=== PATIENT | male | born 1965 | race Hispanic/Latino ===

== ENCOUNTER 2020-04-28 12:37 | Inpatient (IN) | payer SELFPAY ==
[~2020-04-28] VITALS: Ht 175.3 cm; Wt 75.0 kg
[2020-04-28] VITALS (7 sets, daily range): BP systolic 118–129; BP diastolic 58–76
[~2020-04-28 12:37] MED LIST: CLONIDINE0.1 MG PO
--- NOTE | 2020-04-28 13:00 | NUR ---
AMB TO ROOM 8 WITH STEADY GAIT.
--- NOTE | 2020-04-28 13:53 | NUR ---
PLACED ON INFECTION PREVENTION PRACTITIONER, READS SINUS TACH, IVS ESTABLISHED, BLOOD OBTAINED, NASAL SWAB OBTAINED , SPECIMENS SENT TO LAB FOR ANALYSIS. PT TOLERATED WELL.
[2020-04-28 14:00] LABS: HEMATOCRIT 44.6 % (39.0-50.0); HEMOGLOBIN 15.5 g/dl (14.0-18.0); IMMATURE GRANULOCYTES 0.5 % (0.0-5.0); MEAN CELL VOLUME 91.6 fL CALC (80.0-100.0); MEAN CORPUSCULAR HGB 31.8 pG CALC (26.0-32.0); MEAN CORPUSCULAR HGB CONC 34.8 g/dL CAL (32.0-36.0); NEUT# 16.14 thou/uL (1.82-7.42); RED BLOOD COUNT 4.87 mill/uL (4.70-6.10); RED CELL DISTRI WIDTH 11.8 % (11.5-15.5)
[2020-04-28 14:11] LABS: ALBUMIN 3.7 g/dL (3.2-5.0); ALKALINE PHOSPHATASE 141 u/l (38-126); ANION GAP 15 (6-22 (CALC)); BILIRUBIN, TOTAL 0.7 mg/dL (0.0-1.4); BUN 9 mg/dL (9-20); BUN/CREATININE RATIO 16 (12-20 (CALC)); CARBON DIOXIDE 26 mmol/l (22-30); CHLORIDE 94 mmol/l (95-108); CREATININE 0.5 mg/dL (0.7-1.3); GFR > 60 ML/MIN (>=60 (CALC)); GFR FOR AFR.AMER. > 60 ML/MIN (>=60 (CALC)); SGOT/AST 22 u/l (17-59); TOTAL PROTEIN 7.2 g/dL (6.3-8.2)
[2020-04-28 14:14] LABS: SODIUM 131 mmol/l (137-146)
--- NOTE | 2020-04-28 14:19 | NUR ---
SBAR PRINTED TO FLOOR
--- NOTE | 2020-04-28 14:45 | NUR ---
PT ASSESSED. AO X 3. SKIN PINK WARM AND DRY. PT SPEAK SOME [place]. RT GROIN AREA RED WARM SWOLLEN AND PAINFUL FOR THE PAST WEEK. PAIN 4/10 PER PATIENT. IV FLUIDS AND ANTIBIOTICS INFUSING
--- NOTE | 2020-04-28 15:32 | NUR ---
OR PRESENT TO TAKE PATIENT. VANCOMYCIN GIVEN TO OR TO BE ADMISTERED. PT BELONGINGS TRANSPORTED WITH PATIENT
--- NOTE | 2020-04-28 17:19 | NUR ---
PT ARRIVED TO MS2 VIA STRETCHER ACCOMPANIED BY OR NURSE, PT POST OP, ORIENTED PT TO ROOM AND CALL LIGHT, PT SLID TO BED FROM STRETCHER TOLERATED WELL, VOICES NO PAIN AT THIS TIME. PT PROVIDED DINNER TRAY AND WATER. DRESSING TO R INNER THIGH CDI, SCD'S IN PLACE, DISCUSSED POST OP CARE, ADMISSION ASSESSMENT COMPLETED, CALL LIGHT IN REACH,CONTINUE TO MONITOR.
--- NOTE | 2020-04-29 02:49 | NUR ---
PT IN BED WITH EYES CLOSED. NO RESPIRATORY DISTRESS NOTED. RESPIRATIONS ARE EVEN AND NON LABORED. PT IS EASILY AROUSED. DRESSING CHANGE COMPLETED TO RIGTH GROIN AREA AND MOIST TO DRY DRESSING APPLIED. PT TOLERATED DRESSING CHANGE WELL. HAS LACTATED RINGERS RUNNING AT 100ML/HR AND TOLERATING WELL. IV SITES ARE INTACT AND NO S/S OF INFECTION/INFILTRATION NOTED. TOLERATING FLUIDS WELL. WILL CONTINUE TO OBSERVE. BED IN LOWEEST POSITION AND CALL LIGHT IS WITHIN REACH. WILL CONTINUE TO OBSERVE
[2020-04-29 04:20] VITALS: BP 124/69
[2020-04-29 08:05] VITALS: BP 138/78
--- NOTE | 2020-04-29 08:05 | NUR ---
PT RESTING IN BED, NO SIGNS OF DISTRESS NOTED, RESP EVEN AND UNLABORED. PT ALERT AND ORIENTED X3, DRESSING TO SCROTUM CDI, SCDS IN PLACE. ASSESSMENT COMPLETED, CALL LIGHT IN REACH,CONTINUE TO MONITOR.
--- NOTE | 2020-04-29 10:57 | NUR ---
ARRIVED TO DISCUSSED POC WITH PT AND DRESSING CHANGE. PER MD REQUESTS PT BE PRE-MEDICATED FOR DRESSING CHANGE, PT IN ROOM NO SIGNS OF DISTRESS NOTED, RESP EVEN AND UNLABORED, DISCUSSED PLANS FOR DRESSING CHANGE WITH PT, VERBALIZE UNDERSTANDING. PT MEDICATED. CALL LIGHT IN REACH,CONTINUE TO MONITOR.
[2020-04-29 11:00] VITALS: BP 138/76
--- NOTE | 2020-04-29 15:35 | NUR ---
PT GIVEN DIETARY INFORMATION IN UKRAIN[place] REGARDING DIABETES. VOICES NO NEEDS OR COMPLAINTS AT THIS TIME, CALL LIGHT IN REACH,CONTINUE TO MONITOR.
[2020-04-29 16:03] VITALS: BP 121/71
[2020-04-29 20:56] VITALS: BP 126/73
[2020-04-30] VITALS (11 sets, daily range): BP systolic 121–172; BP diastolic 72–101
[2020-04-30 05:20] LABS: IMMATURE GRANULOCYTES 0.4 % (0.0-5.0); MEAN CELL VOLUME 95.4 fL CALC (80.0-100.0); MEAN CORPUSCULAR HGB 31.5 pG CALC (26.0-32.0); NEUT# 8.4 thou/uL (1.82-7.42); RED BLOOD COUNT 3.94 mill/uL (4.70-6.10); RED CELL DISTRI WIDTH 12.2 % (11.5-15.5)
[2020-04-30 05:35] LABS: HEMATOCRIT 37.6 % (39.0-50.0); HEMOGLOBIN 12.4 g/dl (14.0-18.0)
--- NOTE | 2020-04-30 06:58 | NUR ---
PT IS ALERT AND ORIENTED AND ABLE TO VERBALIZE NEEDS.SKIN WARM TO TOUCH. DRESSING CHANGE TO RIGTH GROIN HAS BEEN CHANGED PRESCRIBED BY MD AND PT TOLERATED. PT CONTINUES ON ZOSYN ABT THERAPY. LACTATED RINGERS RUNNING AT 100. PT NPO THIS MORNING FOR I AND D WITH POSSIBLE DISCHARGE NOTED. PT IS CONTINENT OF B/B. EASILY AROUSED. NO COUGH NOTED. CALL LIGHT WITHIN REACH. WILL CONTINUE TO OBSERVE
--- NOTE | 2020-04-30 08:00 | NUR ---
PT IS NPO BLOOD SUGAR WAS HIGH CONITNUE O OBSERVE AND MONITOR
--- NOTE | 2020-04-30 08:10 | NUR ---
ASSESSMENT IS COMPLETED: IV SITE IS FREE FROM REDNESS OR EDEMA. HR IS REG,PULSES ARE STRONG X4, ABD IS SOFT WITH ACTIVE BS., BREATH SOUNDS ARE CLEAR,BILATERALLY. DRESSING ON R GROIN AREA IS CDI. IN PLACE BY MESH PANTIES. TELE MONITOR IN PLACE. NPO AT THIS TIME.
--- NOTE | 2020-04-30 10:54 | NUR ---
INQUIRED WITH OR WHEN COMING TO GET PT. AROUND 1130ISH.
--- NOTE | 2020-04-30 11:34 | NUR ---
OR CAME TO GET PT PT TRANSPORTED VIA WC TO THE STRETCHER. IV SITE CHANGED TO HEPLOCK NO J LOOP. FLUSHED WELL. PT TOLERATED WELL. IV SITE IN RW IS CDI. CONTINUE TO OSBERVE AND MONITOR.
--- NOTE | 2020-04-30 12:00 | NUR ---
PT IS IN OR AT THIS TIME.
--- NOTE | 2020-04-30 14:00 | NUR ---
called wound vac at spoke to silvia gave number of wound vac of pt which is [id number]. was given conformation number of [id number].
--- NOTE | 2020-04-30 14:20 | NUR ---
PT RETURNED FROM OR VIA STRETCHER ABLE TO TRANSFER BACK TO BED.
--- NOTE | 2020-04-30 16:00 | NUR ---
PT HAS BEEN AMBUALTING IN THE ROOM. NO DISTRESS NOTED. IV SITE IS FREE FROM REDNESS OR EDEMA.
--- NOTE | 2020-04-30 19:00 | NUR ---
RECEIVED REPORT FROM NURSE LOPES PATIENT RESTING IN BED WATCHING TV, NO DISCOMFORTS NOTED AT THIS TIME CALL LIGHT AT REACH.
--- NOTE | 2020-04-30 21:00 | NUR ---
PATIENT ALERT ORINETED ABLE TO MAKE NEEDS KNOWN, WITH WOUNDVAC @ 125 ON RT GROIN, C/O PAIN PS 05/11 WILL MEDICATE, BREATHING EVEN UNLABORED, REMAINS ON TELE SB 54, LBM 04/30, CALL LIGHT AT REACH.
[2020-05-01] VITALS (9 sets, daily range): BP systolic 146–211; BP diastolic 79–97
--- NOTE | 2020-05-01 | NUR ---
PATIENT APPEARS TO BE SLEEPING WITH EYES CLOSED, EVEN AND UNLABORED RESPIRATIONS NO DISCOMFORTS NOTED AT THIS TIME, CALL LIGHT AT REACH.
--- NOTE | 2020-05-01 04:00 | NUR ---
PATIENT RESTING IN BED EYES CLOSED, BREATHING EVEN AND UNLABORED CALL LIGHT AT REACH.
--- NOTE | 2020-05-01 13:52 | NUR ---
S: FRANCESCASAVITA is a 55 M who presents with abscess of right groin. He has no remarkable past medical history. All medications in patient's chart were reviewed. 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 P: Vancomycin ordered for pharmacy to dose. Start Vancomycin 1,250 mg IV Q12 H. Vancomycin trough is drawn before the 4th dose on 05/03 @ 0130. Vancomycin goal trough is between 10 to 15 mcg/mL. Pharmacy will follow and or advise on antibiotics use as needed.
--- NOTE | 2020-05-01 18:53 | NUR ---
PT SITTING UP IN BED WITH EYES OPEN AND ABLE TO VERBALIZE NEEDS. SKIN WARM TO TOUCH. STARTED ON VANCOMYCIN ABT THERAPY AND TOLERATED WELL. BP ELEVATED AND MD MADE AWARE AND NEW ORDER FOR CONSULT WITH HOSPITALIST. HOSPITALIST NOTIFIED AND NEW ORDERS FOR AMLODIPINE AND APRESOMIN IV PRN. SSC GIVEN PRESCIBED BY MD. WOUND VAC IN PLACE AND FUNCTIONING WELL. WILL CONTINUE TO OBSERVE
--- NOTE | 2020-05-01 19:00 | NUR ---
RECEIVED REPORT FROM NURSE PANDA PATIENT RESTING IN BED WATCHING TV CALL LIGHT AT REACH.
--- NOTE | 2020-05-01 21:00 | NUR ---
PATIENT ALERT ORIENTED, ABLE TO MAKE NEEDS KNONW, WITH ONGOING IV LR @ 100CC/HR INFUSING WELL ON RAC AND SALINE LOCK ON RT WRIST PATENT AND FLUSHES WELL REMAINS ON TELE SR 99, HOOKED TO WOUND VAC @ 125, C/O PAIN PS 3/10, WILL REPOSITIONED, BREATHING EVEN UNLABORED, CALL LIGHT AT REACH.
--- NOTE | 2020-05-01 22:20 | NUR ---
WOUNDVAC SHOWING LEAK, DRESSING REINFORCED.
--- NOTE | 2020-05-02 | NUR ---
PATIENT APPEARS TO BE SLEEPING WITH EYES CLOSED, BREATHING EVEN AND UNLABORED CALL LIGHT AT [facility].
--- NOTE | 2020-05-02 04:00 | NUR ---
PATIENT RESTING IN BED WITH EYES CLOSED, REMAINS ON TELE SR 79, WOUND VAC SEAL GOOD, NOT IN DISTRESS CALL LIGHT AT REACH.
[2020-05-02 04:08] VITALS: BP 168/90
[2020-05-02 06:32] VITALS: BP 137/86
--- NOTE | 2020-05-02 08:53 | NUR ---
RECEIVED REPORT THIS AM ON THIS PT AND PT IN BED WITH EYES OPEN. ABLE TO VERBALIZE NEEDS. MEAL AND FLUID INATKE ADEQUATE. CONTINUES ON LR AR 100ML/HR AND TOLERATING WELL. NO ADVERSE SIDE EFFECTS NOTED TO VANCOMYCIN ABT THERAPY. PT IS AMBULATORY AND GAIT.BALANCE STEAY. WOUND VAC IN PLACE AND FUNCTIONING WITH NO COMPLICATIONS AND SCHEDULED TO BE CHANGED TODAY. CONTINENT OF B/B. WILL CONTINUE TO OBSERVE. CALL LIGHT IS WITHIN REACH.
[2020-05-02 08:56] LABS: IMMATURE GRANULOCYTES 0.5 % (0.0-5.0); MEAN CELL VOLUME 95.1 fL CALC (80.0-100.0); MEAN CORPUSCULAR HGB 31.4 pG CALC (26.0-32.0); NEUT# 8.74 thou/uL (1.82-7.42); RED BLOOD COUNT 4.93 mill/uL (4.70-6.10); RED CELL DISTRI WIDTH 11.8 % (11.5-15.5)
[2020-05-02 09:09] LABS: HEMATOCRIT 46.9 % (39.0-50.0); HEMOGLOBIN 15.5 g/dl (14.0-18.0)
[2020-05-02 11:01] VITALS: BP 172/83
[2020-05-02 16:15] VITALS: BP 135/51
[2020-05-02 19:00] VITALS: BP 134/75
--- NOTE | 2020-05-02 19:51 | NUR ---
WOUND VAC DRESSING CHANGED AND PT TOLERATED WELL. AREAS ARE CLEAN AND NO ODOR NOTED. SORROUNDING SKIN IS INTACT AND TENDER TO TOUCH. RED GRANULATION TISSUE NOTED. 10% YELLOW TISSUE NOTED IN DISTAL SURGICAL WOUND.
--- NOTE | 2020-05-02 20:55 | NUR ---
PT RESTING IN BED, ALERT AND ORIENTED. RESPIRATIONS EVEN AND UNLABORED ON RA. LUNGS SOUND CLEAR. PEDAL PULSES WEAK. PT REPORTS MILD PAIN IN HIS GROIN AREA, PT TO BE MEDICATED PER EMAR ORDERS. WOUND VAC IN PLACE. CALL ARMANDO WITHIN REACH. WILL CONTINUE TO MONITR.
[2020-05-02 23:33] VITALS: BP 128/71
--- NOTE | 2020-05-03 00:15 | NUR ---
PT RESTING IN BED. NO S/S OF DISTRESS AT THIS TIME. SAFETY PRECAUTIONS IN PLACE. WILL CONTNUE TO MONITOR.
[2020-05-03 04:11] VITALS: BP 144/85
--- NOTE | 2020-05-03 04:26 | NUR ---
PT RESTING IN BED. RESPIRATIONS EVEN AND UNLABORED ON RA. NO S/S OF DISTRESS AT THIS TIME. SAFETY PRECAUTIONS IN PLACE. WILL CONTINUE TO MONITOR.
[2020-05-03 06:01] LABS: CREATININE 0.5 mg/dL (0.7-1.3)
[2020-05-03 07:46] VITALS: BP 149/79
--- NOTE | 2020-05-03 07:46 | NUR ---
PT LAYING IN BED. A&O X3. NO DISTRESS NOTED. PT DENIES ANY PAIN AT THIS TIME. WOND VAC IN PLACE WITH DRESSING CDI. WOUND VAC ASSESSED DUE TO MACHINE PROMPTING TO DOUBLE CHECK TUBING. SEROSANGUINEOUS FLUID NOTED IN COLLECTION CHAMBER. ASSESSMENT COMPLETED. DISCUSSED POC. CALL LIGHT IN REACH. CONTINUE TO MONITOR.
--- NOTE | 2020-05-03 09:31 | NUR ---
S: FRANCESCASAVITA ARMIJO is a 55 M who presents with abscess of right groin. He has no past medical history. All medications in patient's chart were reviewed. O: VS: BP 149/79 mmHg, P 66 bmp, RR 20, T 97.4 F W 75 kg, HT 175 cm, Scr= 0.5 mg/dL ,CrCl= 149.3 ml/min Vancomycin trough on 05/03 is 6. A: Blood culture 04/28/20 is pending. Wound culture on 04/28/20 shows methicillin resistant staph au which is sensitive to vancomycin. Vancomycin trough level is 6. P: Vancomycin ordered for pharmacy to dose. Change Vancomycin dose to 1250 mg IV Q8H. Order Vancomycin trough to be drawn before the 4th dose on 05/04/20 at 1330. Vancomycin goal trough is between 10-15 mcg/ml. Pharmacy will follow and or advise on antibiotics use as needed.
--- NOTE | 2020-05-03 10:30 | NUR ---
DR LOERA AT BEDSIDE, PER EVARISTO APPLY TEGADERM TO PREVENT WOUND VAC AIR TO LEAK. DRESSING TO BE CHANGED AND WOUND TO BE EVALUATED BY EVARISTO IN THE MORNING.
[2020-05-03 11:16] VITALS: BP 142/81
--- NOTE | 2020-05-03 14:32 | NUR ---
PT DENIES ANY PAIN AT THIS TIME. CALL LIGHT IN REACH. CONTINUE TO MONITOR
[2020-05-03 15:30] VITALS: BP 131/74
--- NOTE | 2020-05-03 17:59 | NUR ---
PT LAYING IN BED C/O OF PAIN. PAIN MEDICATION GIVEN. WILL REASSESS.
[2020-05-03 19:00] VITALS: BP 125/70
--- NOTE | 2020-05-03 21:45 | NUR ---
PT RETURNING TO BED FROM THE RESTROOM, GATE STEADY. RESPIRATIONS EVEN AND UNLABORED ON RA, LUNGS SOUND CLEAR. PEDAL PULSES STRONG. WOUND VAC IN PLACE. PT DENIES ANY PAIN OR DISCOMFORT AT THIS TIME. SAFETY PRECAUTIONSIN PLACE. WILL CONTINUE TO MONITOR.
[2020-05-03 23:46] VITALS: BP 120/71
--- NOTE | 2020-05-04 00:15 | NUR ---
PT RESTING IN BED, RESPIRATIONS EVEN AND UNLABORE NO S/S OF DISTRESS AT THIS TIME. SAFETY PRECAUTIONSIN PLACE. WILL CONTINUE TO MONTIOR.
--- NOTE | 2020-05-04 01:58 | NUR ---
PT RESTING IN BED. PT ALERT AND ORIENTED. WOUND VAC ERROR, BLOCKAGE NOTED, PT PRE MEDICATED FOR PAIN, WOUND VAC DRESSING REMOVED. PREVIOUS DRESSING NOTED SUCTION TO SKIN AND NOT THE SPONGE NO APPARENT SKIN BREAK DOWN. LARGE AMOUNT OF SEROUSAGUINOUS DRAINAGE NOTED. SURROUNDING SKIN CLEANSED WITH NS, DRIED AND SKIN PREP APPLIED. NEW WOUND DRESSING APPLIED. SUCTION TO 125 MMHG NO LEAKS OR BLOCKAGES DETECTED. PT TOLERATED WELL. SAFETY PRECAUTIONSIN PLACE. WILL CONTINUE TO MONITOR.
--- NOTE | 2020-05-04 03:38 | NUR ---
PT RESTING IN BED NO S/S OF DISTRESS AT THIS TIME. SAFETY PRECAUTIONS IN PLACE.WILL CONTINUE TO MONITOR.
[2020-05-04 05:00] VITALS: BP 112/61
[2020-05-04 07:45] VITALS: BP 131/86
--- NOTE | 2020-05-04 07:45 | NUR ---
ASSESSMENT IS COMPELTED: IV SITE IS FREE FROM REDNESS OR EDEMA. HR IS REG,PULSES ARE STRONG X4, ABD IS SOFT WITH ACTIVE BS. BREATH SOUNDS ARE CLEAR BILATERALLY. WOUND VAC IN PLACE ON R GROIN. TELE MONITOR IN PLACE. CONTINUE TO OBSERVE AND MONITOR.
[2020-05-04 11:13] VITALS: BP 147/74
--- NOTE | 2020-05-04 12:40 | NUR ---
PT HAS BEEN RELAXING IN BED, NO DISTRESS NOTED. CONTINUE TO OSBERVE AND MONITOR. IV SITE IS FREE FROM REDNESS OR EDEMA.
--- NOTE | 2020-05-04 13:30 | NUR ---
DR LOERA IN TO VISIT WITH PT. TOOK WOUND VAC OFF AND REPLACED WITH 4X4 PACKING LIGHTLY AND SECURED WITH ABD PAD AND MESH PANTIES. CONTINUE TO OSBERVE AND MONITOR.
[2020-05-04 15:00] VITALS: BP 106/68
--- NOTE | 2020-05-04 15:54 | NUR ---
pt is receiving vancomycin 1250 q8h for abscess of right groin. goal trough = 10-15 mcg/ml. trough today = 12 mcg/ml. continue at current dose, re-check trough 05/05 @1330. pharmacy will continue to follow
--- NOTE | 2020-05-04 16:24 | NUR ---
PT HAS BEEN AMBULATING IN THE ROOM AND SEE WITH NO DISTRESS NOTED. IV SITE IS FREE FROM REDNESS OR EDEMA.
[2020-05-04 19:00] VITALS: BP 127/72
--- NOTE | 2020-05-04 21:19 | NUR ---
PT RESTING IN BED, RESPIRATIONS EVEN AND UNLABORED ON RA. LUNGS SOUND CLEAR. PEDAL PULSES STRONG. DRESSING TO R GROIN SOILED, OLD DRESSING REMOVED AND NEW DRESSING APPLIED. PT TOLERATED WELL. WILL CONTINUE TO MONTIOR.
[2020-05-04 23:30] VITALS: BP 151/76
[2020-05-05 04:20] VITALS: BP 122/68
--- NOTE | 2020-05-05 04:34 | NUR ---
PT RESTING IN BED. RESPIRATIONS EVEN AND UNLABORED ON RA. SAFETY PRECAUTIONS IN PLACE. WILL CONTINUE TO MONITOR.
--- NOTE | 2020-05-05 04:34 | NUR ---
PT RESTING IN BED. RESPIRATIONS EVEN AND UNLABORED ON RA. NO S/S OF DISTRESS AT THIS TIME. SAFETY PRECAUTIONS IN PLACE. WILL CONTINUE TO MONITOR.
[2020-05-05 07:42] VITALS: BP 139/83
--- NOTE | 2020-05-05 07:42 | NUR ---
ASSESSMENT IS COMPLETED: IV SITE IS FREE FROM REDNESS OR EDEMA. HR IS REG,PULSES ARE STRONG X4, ABD IS SOFT WITH ACTIVE BS. BREATH SOUNDS ARE CLEAR, BILATERALLY. DRESSING ON R GROIN AREA IS TENDER TO THE TOUCH, HAS DRAINAGE NOTED. CONTINUE TO OSBERVE AND MONITOR.
--- NOTE | 2020-05-05 09:49 | NUR ---
DR LOERA IN TO VISIT WITH PT WILL TEACH PT HOW TO CHANGE DRESSING POSSIBLY GOING HOME TOMORROW.
[2020-05-05 11:26] VITALS: BP 119/53
--- NOTE | 2020-05-05 12:45 | NUR ---
PT IS RELAXING IN BED WITH NO DISTRESS NOTED. IV SITE IS FREE FROM REDNESS OR EDEMA.
--- NOTE | 2020-05-05 13:32 | NUR ---
PT IS RECEIVING VANCOMYCIN 1250MG IV Q8H FOR ABSCESS OF RIGHT GROIN. GOAL TROUGH = 10-15 MCG/ML. PT TROUGH TODAY = 13 MCG/ML. CONTINUE, RECHECK TROUGH 05/07 @ 1330. PHARMACY WILL CONTINUE TO FOLLOW.
--- NOTE | 2020-05-05 13:50 | NUR ---
REMOVED DRESSING ON R GROIN AREA. PT TOLERATED WELL. OBSERVED THE DRESSING CHANGE "STATING I WILL TRY" REPLACED WITH 4X4 AND SECURED WITH ABD PAD/ PT TOLERATED WELL USING CLEAN TECHNIQUE
[2020-05-05 15:00] VITALS: BP 115/72
--- NOTE | 2020-05-05 16:08 | NUR ---
REPORT RECEIVED FROM MARIANNE DAVIS, PT RESTING IN BED, VOICES NO NEEDS OR COMPLAINTS AT THIS TIME. CALL LIGHT IN REACH,CONTINUE TO MONITOR.
[2020-05-05 18:39] VITALS: BP 125/71
--- NOTE | 2020-05-05 19:27 | NUR ---
PT AMBULATING THE SEE WITH A STEADY GATE, RESPIRATRIONS EVEN AND UNLABORED ON RA. NO S/S OF DISTRESS. WILL CONTINUE TO MONITOR.
--- NOTE | 2020-05-05 20:30 | NUR ---
PT SITTING AT THE END OF THE SEE WATCHING FIREWORKS OUT OF THE WINDOW. RESPIRATIONS EVEN AND UNLABORED ON RA, LUNGS SOUND CLEAR. PEDAL PULSES STRONG. PT DENIES ANY PAIN OR DISCOMFORT AT THIS TIME. SAFETY PRECAUTIONSIN PLACE. WILL CONTINUE TO MONITOR.
--- NOTE | 2020-05-06 00:01 | NUR ---
PT RESTING IN BED. RESPIRATIONS EVEN AND UNLABORED ON RA. NO S.S OF DISTRESS AT THIS TIME. SAFETY PRECAUTIONSIN PLACE. WILL CONTINUE TO MONITOR.
[2020-05-06 03:45] VITALS: BP 126/76
--- NOTE | 2020-05-06 04:18 | NUR ---
PT RESTING IN BED, RESPIRATIONS EVEN AND UNLABORED ON RA, TELE IN PLACE, NO S/S OF DISTRESS AT THIS TIME. WILL CONTINUE TO MONITOR.
[2020-05-06 07:38] VITALS: BP 112/65
[2020-05-06 07:40] VITALS: BP 112/65
--- NOTE | 2020-05-06 08:05 | NUR ---
ASSESSMENT DONE. PT IS A&O X3. RESPS EVEN AND UNLABORED. PT DENIES PAIN AT THIS TIME. PT STATED HE HAD BM YESTERDAY. IVF INFUSING WELL. PO FLUIDS PROVIDED. DRESSING IN RIGHT GROIN IN PLACE. PT DENIES ANY NEEDS AT THIS TIME. CALL LIGHT IN REACH.
[2020-05-06] MEDS ORDERED: PERCOCET 5/325M1 TAB PO (09:21)
[2020-05-06] MEDS ORDERED: AMARYL1 MG PO (10:38)
[2020-05-06] MEDS ORDERED: METFORMIN500 M2 PO (10:38)
[2020-05-06] MEDS ORDERED: AMLODIPINE BESYL5 MG PO (10:38)
--- NOTE | 2020-05-06 11:24 | NUR ---
CHANGE PT DRESSING IN RIGHT GROIN. EDUCATED PT ON HOW TO CHANGE HIS DRESSING. PT VERBALIZED UNDERSTANDING. PT DENIES PAIN OR NEEDS. CALL LIGHT IN REACH.
--- NOTE | 2020-05-06 14:45 | NUR ---
SPOKE WITH PHARMACIST AT [facility], 4 ORAL MEDS READY THRU DIRECT BILL @ NO COST. UNABLE TO GET PAID CLAIM FOR METER/STRIPS/LANCETS. I WILL FOLLOW UP WITH DOUBLE HEAD MACHINE OPERATORJOSE GAMEZ THERE TOMORROW. [facility] AND [facility] AWARE. PT MUST BRING BILLING SHEET FROM [employer] TO [facility]
--- NOTE | 2020-05-06 14:45 | NUR ---
Discharge instructions given. Patient verbalizes understanding of same. Discharged in stable condition via Wheelchair to Home with staff. All belongings sent with pt.
--- NOTE | 2020-05-06 17:36 | NUR ---
CALLED THE WOUND VAC BACK IN ON THIS PT. SPOKE TO KARO WAS GIVEN CONFIRMATION NUMBER [phone].
--- NOTE | 2020-05-07 09:31 | NUR ---
SPOKE WITH VERA AT [facility], ALL PT'S MEDS, METER, TEST STRIPS, LANCETS READY FOR PT WITH NO CHARGE
== END 2020-05-06 14:45 | disposition home or self-care (01) | DRG 502 ==
LOC: ED 12:37 → ED-I 14:00 → ED 14:19 → ED-I 14:20 → MS2 14:20
PROVIDERS: Family Medicine; ADMIT Surgery; ATTEND Surgery
PROC: 0YB50ZZ Excision of Right Inguinal Region, Open Approach (ICD-10-PCS; principal; 2020-04-28)
PROC: 0JDL0ZZ Extraction of Right Upper Leg Subcutaneous Tissue and Fascia, Open Approach (ICD-10-PCS; 2020-04-30)
DX: M72.6 Necrotizing fasciitis (principal); I10 Essential (primary) hypertension; E11.9 Type 2 diabetes mellitus without complications; F17.200 Nicotine dependence, unspecified, uncomplicated; B95.62 Methicillin resistant Staphylococcus aureus infection as the cause of diseases classified elsewhere; Z20.828 Contact with and (suspected) exposure to other viral communicable diseases
CPT/HCPCS: J0131; J1100; J3370

== ENCOUNTER 2020-07-16 11:14 | Inpatient (IN) | payer SELFPAY ==
[~2020-07-16] VITALS: Ht 167.6 cm; Wt 70.0 kg
[~2020-07-16 11:14] MED LIST changes: +AMARYL1 MG PO; +AMLODIPINE BESYL5 MG PO; +METFORMIN500 M2 PO; +PERCOCET 5/325M1 TAB PO
--- NOTE | 2020-07-16 11:39 | NUR ---
Pt not in waiting room when called to treatment room.
--- NOTE | 2020-07-16 11:45 | NUR ---
Pt ambulated to room # 6 with steady gait for bedside triage
--- NOTE | 2020-07-16 12:06 | NUR ---
Pt to radiology via stretcher in stable condition
--- NOTE | 2020-07-16 12:14 | NUR ---
Pt returned to room # 6 from radiology
[2020-07-16 12:51] LABS: URINE BILIRUBIN - DIPSTICK NEGATIVE (NEGATIVE); URINE BLOOD DIPSTICK NEGATIVE (NEGATIVE); URINE COLOR YELLOW; URINE GLUCOSE - DIPSTICK >=1000 mg/dL (NEGATIVE); URINE KETONE NEGATIVE (NEGATIVE); URINE LEUK ESTERASE NEGATIVE (NEGATIVE); URINE NITRITE - DIPSTICK NEGATIVE (Negative); URINE PROTEIN - DIPSTICK NEGATIVE (NEG-TRACE); URINE SPECIFIC GRAVITY <=1.005; URINE UROBILINOGEN - DIPSTICK 0.2 E.U./dL (0.2)
[2020-07-16 12:51] LABS: IMMATURE GRANULOCYTES 0.5 % (0.0-5.0); MEAN CORPUSCULAR HGB 28.5 pG CALC (26.0-32.0); MEAN CORPUSCULAR HGB CONC 32.5 g/dL CAL (32.0-36.0); NEUT# 17.21 thou/uL (1.82-7.42); RED BLOOD COUNT 4.32 mill/uL (4.70-6.10)
[2020-07-16 12:53] LABS: HEMATOCRIT 37.9 % (39.0-50.0); HEMOGLOBIN 12.3 g/dl (14.0-18.0); MEAN CELL VOLUME 87.7 fL CALC (80.0-100.0)
--- NOTE | 2020-07-16 13:00 | NUR ---
MLP at bedside to discuss clinical findings and probable POC
[2020-07-16 13:07] LABS: ALBUMIN 3.4 g/dL (3.2-5.0); ALKALINE PHOSPHATASE 181 u/l (38-126); ANION GAP 16 (6-22 (CALC)); BILIRUBIN, TOTAL 0.4 mg/dL (0.0-1.4); BUN 6 mg/dL (9-20); BUN/CREATININE RATIO 11 (12-20 (CALC)); CARBON DIOXIDE 26 mmol/l (22-30); CHLORIDE 92 mmol/l (95-108); CREATININE 0.6 mg/dL (0.7-1.3); GFR > 60 ML/MIN (>=60 (CALC)); GFR FOR AFR.AMER. > 60 ML/MIN (>=60 (CALC)); POTASSIUM 4.1 mmol/l (3.5-5.1); SGOT/AST 24 u/l (17-59); SODIUM 130 mmol/l (137-146); TOTAL PROTEIN 6.7 g/dL (6.3-8.2)
--- NOTE | 2020-07-16 13:31 | NUR ---
Pt to radiology via stretcher in stable condition
--- NOTE | 2020-07-16 13:50 | NUR ---
Pt returned to room # 6 from radiology via stretcher. Explained wait time for results. Showed understanding. call vasquez within reach.
--- NOTE | 2020-07-16 15:00 | NUR ---
PT RESTING ON STRETCHER IN POSITION OF COMFORT. ANTIBIOTIC INFUSING
--- NOTE | 2020-07-16 15:58 | NUR ---
PT RESTING ON STRETCHER. IV ANTIBIOTIC AND FLUID INFUSING
--- NOTE | 2020-07-16 16:34 | NUR ---
NASAL CULTURE COLLECTED FOR MRSA
[2020-07-16] MEDS ORDERED: PIOGLITAZONE HC30 MG PO (16:40)
[2020-07-16] MEDS ORDERED: LISINOPRIL5 MG PO (16:41)
--- NOTE | 2020-07-16 16:47 | NUR ---
REPORT GIVEN TO PAIGE SIMPSONEFFICIENCY MINER BLASTING
--- NOTE | 2020-07-16 17:05 | NUR ---
PT TAKEN VIA STRETCHER TO MED SURG. TELEMETRY IN PLACE
[2020-07-16 17:36] VITALS: BP 174/84
[2020-07-16 18:45] VITALS: BP 162/88
--- NOTE | 2020-07-16 19:00 | NUR ---
RECEIVED REPORT FROM NURSE PAIGE PATIENT IS RESTING IN BED, WATCHING TV, REMAINS ON ISOLATION CALL LIGHT AT REACH.
--- NOTE | 2020-07-16 20:45 | NUR ---
RELAYED BS [address] NÚÑEZ WITH ORDERS TO START MEDIUM SLIDING SCALE.
[2020-07-17] VITALS: BP 151/81
--- NOTE | 2020-07-17 | NUR ---
PATIENT RESTING IN BED WITH EYES CLOSED, BREATHING EVEN UNLABORED, PATIENT WARM TO TOUCH, WILL RECHECK TEMPERATURE.
[2020-07-17 03:45] VITALS: BP 135/78
[2020-07-17 04:48] LABS: HEMOGLOBIN 11.9 g/dl (14.0-18.0); IMMATURE GRANULOCYTES 0.7 % (0.0-5.0); MEAN CELL VOLUME 89.2 fL CALC (80.0-100.0); MEAN CORPUSCULAR HGB 28.7 pG CALC (26.0-32.0); MEAN CORPUSCULAR HGB CONC 32.2 g/dL CAL (32.0-36.0); NEUT# 22.15 thou/uL (1.82-7.42); RED BLOOD COUNT 4.15 mill/uL (4.70-6.10); RED CELL DISTRI WIDTH 12.2 % (11.5-15.5)
[2020-07-17 05:01] LABS: ALBUMIN 3.1 g/dL (3.2-5.0); ALKALINE PHOSPHATASE 183 u/l (38-126); ANION GAP 11 (6-22 (CALC)); BILIRUBIN, TOTAL 0.4 mg/dL (0.0-1.4); BUN 7 mg/dL (9-20); BUN/CREATININE RATIO 11 (12-20 (CALC)); CARBON DIOXIDE 29 mmol/l (22-30); CHLORIDE 97 mmol/l (95-108); CREATININE 0.6 mg/dL (0.7-1.3); GFR > 60 ML/MIN (>=60 (CALC)); GFR FOR AFR.AMER. > 60 ML/MIN (>=60 (CALC)); POTASSIUM 3.7 mmol/l (3.5-5.1); SGOT/AST 23 u/l (17-59); SODIUM 134 mmol/l (137-146); TOTAL PROTEIN 6.2 g/dL (6.3-8.2)
--- NOTE | 2020-07-17 09:00 | NUR ---
PT SEEN AWAKE, ALERT, ORIENTED X 3, LITHUANIAN SPEAKING ONLY. LUNGS CLEAR, RA. PT UP TO BR NEEDED WITHOUT DIFFICULTY. NO COMPLAINTS, NO DISTRESS. PT MEDICATED FOR PAIN EARLY IN SHIFT. NO VISIBLE WOUND TO RIGHT HIP WHERE PT'S PAIN IS CENTERED.
--- NOTE | 2020-07-17 09:06 | NUR ---
PT note: Screened patient for intervention. Patient is not appropriate for PT at this time. Patient is pending further medical work up
--- NOTE | 2020-07-17 10:56 | NUR ---
S: BRANDNARINDERSAVITA ARMIJO is a 55 M who presents with cellulitis, sepsis, leukocytosis, lactic acidosis. He has a history of High blood pressure and DM. All medications in patient's chart were reviewed. O: VS: BP 135/78 mmHg, P 82 bpm, RR 20 breaths/min, T 99.3 F W 70 kg, HT 167.64, Scr= 0.6, CrCl= 139 ml/min A: Blood culture is pending. P: Patient is on Vancomycin IV. Vancomycin ordered for pharmacy to dose. Start Vancomycin 1250 mg IV Q12H. Vancomycin trough is drawn before the 4th dose on 07/18/20 0330. Vancomycin goal trough is between <15-20 mcg/ml>. Pharmacy will follow and or advise on antibiotics use as needed.
[2020-07-17 11:00] VITALS: BP 140/76
--- NOTE | 2020-07-17 13:00 | NUR ---
PT MEDICATED FOR RIGHT HIP PAIN, APPEARS COMFORTABLE AFTER ADMINISTRATION. PT RESTS IN THE BED WITHOUT COMPLAINT, NO EVIDENCE OF DISTRESS.
[2020-07-17 14:40] VITALS: BP 156/87
--- NOTE | 2020-07-17 19:00 | NUR ---
RECEIVED REPORT FROM NURSE TAPIA, PATIENT CURRENTLY SITTING IN RECLINER, BREATHING EVEN UNLABORED, CALL LIGHT AT REACH.
[2020-07-17 19:10] VITALS: BP 106/60
--- NOTE | 2020-07-17 22:18 | NUR ---
PATIENT ALERT ORIENTED CURRENTLY SITTING IN RECLINER WITH ONGOUING IV 1/2 NS @ 100CC/HR INFUSING WELL ON LAC, REMAINS ON TELE SR 93, BS 379 COVERAGE GIVEN, LBM 07/17, ACTIVE BOWEL SOUNDS ON ALL QUADRANTS, BREATHING EVEN UNLABORED CALL LIGHT AT REACH.
--- NOTE | 2020-07-17 23:08 | NUR ---
SPOKE TO [employer] GU, ABOUT CLARIFICATION FOR [facility] TROUGH AND STATED TO DO THE TROUGH ON 07/18 330 AND CANCEL THE 163.
--- NOTE | 2020-07-17 23:59 | NUR ---
PATIENT CURENTLY SITTING IN RECLINER APPEARS TO BE SLEEPING WITH EYS CLOSED, BREATHIN EVEN UNLABORED, CALL LIGHT AT REACH.
[2020-07-18] VITALS (7 sets, daily range): BP systolic 96–130; BP diastolic 60–73
[2020-07-18 03:18] LABS: HEMOGLOBIN 11.4 g/dl (14.0-18.0); IMMATURE GRANULOCYTES 0.8 % (0.0-5.0); MEAN CELL VOLUME 88.6 fL CALC (80.0-100.0); MEAN CORPUSCULAR HGB 28.9 pG CALC (26.0-32.0); MEAN CORPUSCULAR HGB CONC 32.6 g/dL CAL (32.0-36.0); NEUT# 24.8 thou/uL (1.82-7.42); RED BLOOD COUNT 3.95 mill/uL (4.70-6.10); RED CELL DISTRI WIDTH 12.4 % (11.5-15.5)
[2020-07-18 03:38] LABS: ALBUMIN 2.9 g/dL (3.2-5.0); ALKALINE PHOSPHATASE 222 u/l (38-126); ANION GAP 12 (6-22 (CALC)); BILIRUBIN, TOTAL 0.4 mg/dL (0.0-1.4); BUN 8 mg/dL (9-20); BUN/CREATININE RATIO 16 (12-20 (CALC)); CARBON DIOXIDE 26 mmol/l (22-30); CHLORIDE 99 mmol/l (95-108); CREATININE 0.5 mg/dL (0.7-1.3); GFR > 60 ML/MIN (>=60 (CALC)); GFR FOR AFR.AMER. > 60 ML/MIN (>=60 (CALC)); POTASSIUM 3.7 mmol/l (3.5-5.1); SGOT/AST 18 u/l (17-59); SODIUM 134 mmol/l (137-146)
[2020-07-18 03:55] LABS: C-REACTIVE PROTEIN > 27.0 mg/dL (0-0.9)
--- NOTE | 2020-07-18 04:38 | NUR ---
PATIENT AWAKEN BY PAIN ON RT THIGH, PS 10/10, PRN MORPHINE GIVE, WILL REEVALUATE, CURRENTLY RESTING IN BED, EYS CLOSED, CALL LIGHT AT REACH.
--- NOTE | 2020-07-18 08:24 | NUR ---
PT SITTING IN CHAIR. A&O X3. NO DISTRESS NOTED. PT C/O OF RT THIGH PAIN. PAIN MEDICATION TO BE GIVEN. PT DENIES OTHER NEEDS AT THIS TIME. ASSESSMENT COMPLETED. DISCUSSED POC. CALL LIGHT IN REACH. CONTINUE TO MONITOR.
--- NOTE | 2020-07-18 08:38 | NUR ---
PT RECEIVING VANCOMYCIN 1250MG IV Q12H FOR CELLULITIS/SEPSIS. GOAL TROUGH = 15-20 MCG/ML. TROUGH THIS AM WAS 6 MCG/ML. CHANGE FREQUENCY TO Q8H. WILL RE-CHECK TROUGH 07/19 @ 0330. PHARMACY WILL CONTINUE TO FOLLOW
--- NOTE | 2020-07-18 09:45 | NUR ---
PT TAKEN VIA WC TO CT ACCOMPANIED BY RALPH HALL. PT NEGATIVE FOR C19 SWAB , PT TO BE MOVED TO ROOM 269.
--- NOTE | 2020-07-18 11:50 | NUR ---
PT SITTING IN BED EATING LUNCH. PICC LINE IN PLACE TO MARCY, SITE FLUSHES WITH EASE WITH GOOD BLOOD RETURN. NO OTHER NEEDS AT THIS TIME. CALL LIGHT IN REACH. CONTINUE TO MONITOR.
--- NOTE | 2020-07-18 20:04 | NUR ---
ASSESSMENT AND VITALS COMPLETED AT THIS TIME. RESPIRATIONS ARE EVEN AND UNLABORED WITH NO SOB. NO SIGNS OF DISTRESS. HEART RHYTHM IS NORMAL. BOWEL SOUNDS ARE ACTIVE IN ALL QUADRANTS. RADIAL AND PEDAL PULSES ARE STRONG WITH NORMAL CAPILLARY REFILL. SKIN IS INTACT. PT DENIES ANY PAIN OR ADDITIONAL NEEDS AT THIS TIME. ALL SAFETY PRECAUTIONS ARE IN PLACE WITH CALL LIGHT IN REACH. WILL CONTINUE TO MONITOR.
--- NOTE | 2020-07-18 21:48 | NUR ---
RUE CDI, MINIMAL EDEMA VISUALIZED AT THIS TIME. PT REPORTS PAIN AT 2/10, DENIES NEED FOR PAIN MEDICATION. URINAL EMPTIED OF 400CC CLEAR YELLOW URINE.
--- NOTE | 2020-07-19 03:02 | NUR ---
PT CONTINUES BEFORE SLEEPING IN BED, NO DISTRESS NOTED. CALL LIGHT IN REACH. WILL CONTINUE TO MONITOR.
[2020-07-19 04:00] VITALS: BP 120/69
--- NOTE | 2020-07-19 04:00 | NUR ---
MARCY MEASUREMENT AT PICC LINE SITE MEASURED @25.5CM
[2020-07-19 05:17] LABS: HEMATOCRIT 32.8 % (39.0-50.0); HEMOGLOBIN 10.5 g/dl (14.0-18.0); IMMATURE GRANULOCYTES 0.6 % (0.0-5.0); MEAN CELL VOLUME 90.1 fL CALC (80.0-100.0); MEAN CORPUSCULAR HGB 28.8 pG CALC (26.0-32.0); NEUT# 14.27 thou/uL (1.82-7.42); RED BLOOD COUNT 3.64 mill/uL (4.70-6.10); RED CELL DISTRI WIDTH 12.4 % (11.5-15.5)
[2020-07-19 05:36] LABS: ALBUMIN 2.6 g/dL (3.2-5.0); ALKALINE PHOSPHATASE 223 u/l (38-126); ANION GAP 9 (6-22 (CALC)); BILIRUBIN, TOTAL 0.3 mg/dL (0.0-1.4); BUN 8 mg/dL (9-20); BUN/CREATININE RATIO 15 (12-20 (CALC)); CARBON DIOXIDE 30 mmol/l (22-30); CHLORIDE 102 mmol/l (95-108); CREATININE 0.5 mg/dL (0.7-1.3); GFR > 60 ML/MIN (>=60 (CALC)); GFR FOR AFR.AMER. > 60 ML/MIN (>=60 (CALC)); POTASSIUM 3.8 mmol/l (3.5-5.1); SGOT/AST 26 u/l (17-59); SODIUM 137 mmol/l (137-146); TOTAL PROTEIN 5.5 g/dL (6.3-8.2)
[2020-07-19 06:02] LABS: C-REACTIVE PROTEIN > 27.0 mg/dL (0-0.9)
[2020-07-19 08:21] VITALS: BP 92/55
--- NOTE | 2020-07-19 08:21 | NUR ---
PT SITTING IN CHAIR. A&O X3. NO DISTRESS NOTED. MARCY 25 CM IN DIAMETER. PT C/O OF SLIGHT LEG PAIN. REPORTS TO BE FEELING BETTER THAN YESTERDAY. ASSESSMENT COMPLETED. DISCUSSED POC. CALL LIGHT IN REACH. CONTINUE TO MONITOR.
--- NOTE | 2020-07-19 10:18 | NUR ---
PT IS RECEIVING VANCOMYCIN 1250MG IV Q8H FOR CELLULITIS/SEPSIS. LAST 1999 DOSE WAS ACTUALLY NOT GIVEN TIL ~0100 THIS AM SO SCHEDULED TROUGH AT 0330 WAS CANCELLED. VANCO LEVEL WAS DRAWN THIS AM AT 0747, LEVEL = 7 MCG/ML. CONTINUE AT 1250MG IV Q8H AT 0200, 1000, 1830. WILL DRAW TROUGH TOMORROW AT 0930. PHARMACY WILL CONTINUE TO FOLLOW
[2020-07-19 10:50] VITALS: BP 100/54
[2020-07-19 14:58] VITALS: BP 120/66
--- NOTE | 2020-07-19 14:59 | NUR ---
PT SITTING IN CHAIR. C/O OF PAIN. PAIN MEDICATION GIVEN, WILL REASSESS.
--- NOTE | 2020-07-19 18:07 | NUR ---
PT LAYING IN BED NO DISTRESS NOTED. PAIN MEDICATION GIVEN. WILL REASSESS.
[2020-07-19 19:00] VITALS: BP 141/83
[2020-07-20] VITALS: BP 134/80
--- NOTE | 2020-07-20 00:04 | NUR ---
PT RESTING IN BED. ALERT AND ORIENTED X3. TELE ON. HEALTHY FLUSHES. IV ZOSYN RUNNING. ENCOURAGED TO VERBALIZE NEEDS OR CONCERNS. STATES UNDERSTANDING. SAFETY MEASURES IN PLACE. CALL LIGHT WITHIN REACH. WILL CONTINUE TO MONITOR.
[2020-07-20 04:00] VITALS: BP 158/86
--- NOTE | 2020-07-20 04:12 | NUR ---
PT RESTING IN BED WATCHING TV.IV IS PATENT AND SITE IS HEALTHY WITH NO REDNESS OR SWELLING. PT ENCOURAGED TO VERBALIZE NEEDS OR CONCERNS. CALL ARMANDO WITH REACH. WILL CONTINUE TO MONITOR.
[2020-07-20 06:49] LABS: HEMATOCRIT 35.4 % (39.0-50.0); HEMOGLOBIN 11.4 g/dl (14.0-18.0); MEAN CELL VOLUME 89.4 fL CALC (80.0-100.0); MEAN CORPUSCULAR HGB 28.8 pG CALC (26.0-32.0); MEAN CORPUSCULAR HGB CONC 32.2 g/dL CAL (32.0-36.0); RED BLOOD COUNT 3.96 mill/uL (4.70-6.10); RED CELL DISTRI WIDTH 12.5 % (11.5-15.5)
[2020-07-20 07:11] LABS: ANION GAP 10 (6-22 (CALC)); BUN 5 mg/dL (9-20); BUN/CREATININE RATIO 11 (12-20 (CALC)); CARBON DIOXIDE 32 mmol/l (22-30); CHLORIDE 101 mmol/l (95-108); CREATININE 0.5 mg/dL (0.7-1.3); GFR > 60 ML/MIN (>=60 (CALC)); GFR FOR AFR.AMER. > 60 ML/MIN (>=60 (CALC)); MAGNESIUM 2.1 mg/dL (1.6-2.3); POTASSIUM 3.6 mmol/l (3.5-5.1); SODIUM 139 mmol/l (137-146)
--- NOTE | 2020-07-20 07:25 | NUR ---
PT TRANSPORTED TO HAVE CT COMPLETED VIA WC WITH STAFF. AT [address]
[2020-07-20 08:10] VITALS: BP 111/68
--- NOTE | 2020-07-20 08:10 | NUR ---
ASSESSMENT IS COMPLETED; IV SITE IS FREE FROM REDNESS OR EDEMA. HR IS REG,PULSES ARE STRONG X4, ABD IS SOFT WITH ACTIVE BS. BREATH SOUNDS ARE CLEAR,BILATERALLY. NO C/O SOB. C/O DISCOMFORT ON LEFT THIGH. TELE MONITOR IN PLACE.
--- NOTE | 2020-07-20 10:48 | NUR ---
S: BRANDBritneySAVITA MUJICA is a 55 M who presents with cellulitis and sepsis. He has a history of hypertension, diabetes, and necrotizing fasciitis. All medications in patient's chart were reviewed. O: VS: BP 111/63 mmHg, P 101 bpm, RR 18 breaths per minute,T 98.4 F W 69.9 kg, HT 167.6 cm, Scr= 0.5 L,CrCl= 139.2 ml/min A: Blood culture shows MRSA which is sensitive to Vancomycin. P: Patient is on Zosyn 3.375 g q6h. Vancomycin ordered for pharmacy to dose. Start Vancomycin 1500 mg IV Q8H. Vancomycin trough is drawn before the 4th dose on 07/21/20 1800. Vancomycin goal trough is between 15-20 mcg/ml. Pharmacy will follow and or advise on antibiotics use as needed.
--- NOTE | 2020-07-20 11:30 | NUR ---
PT WAS VISITED BY CASE MANAGEMENT AND HAD WILLIE RN TO INTERPRET FOR PT RE: BEING TRANSFERRED TO [facility]. AND WILL BE INFORMED OF WHAT IS GOING ON. VERBALIZED UNDERSTANDING. AND SIGNED CONSENT FOR THE TRANSFER.
[2020-07-20 12:00] VITALS: BP 94/63
--- NOTE | 2020-07-20 12:30 | NUR ---
PT IS RELAXING IN THE CHAIR NO DISTRESS NOTED. IV SITE IS FREE FROM REDNESS OR EDEMA.
--- NOTE | 2020-07-20 15:30 | NUR ---
PT AMBULATING IN THE ROOM. NO DISTRESS NOTED. IV SITE IS FREE FROM REDNESS OR EDEMA.
[2020-07-20 16:00] VITALS: BP 121/70
--- NOTE | 2020-07-20 16:00 | NUR ---
INFORMED BY CASE MANAGEMENT WITH WILLIE RN INTERPRETING [facility]ORT AND WHEN THEY ARE COMING. PT VERBALIZED UNDERSTANDING
--- NOTE | 2020-07-20 17:03 | NUR ---
SPOKE WITH LAURA SIMPSON AT [facility]. GAVE REPORT ON PT. INFORMING OF THE MRSA FROM FLUID COLLECTED ON THIGH. ALSO IV STATUS. [facility] CAME TO TRANSPORT PT. WAS INFTERPRETED BY WILLIE SIMPSON WITH CASE MANAGEMENT. TELE MONITOR TAKEN OFF PT PRIOR TO LEAVING. CONTINUE TO OBSERVE AND MONITOR.
--- NOTE | 2020-07-20 17:07 | NUR ---
Discharge instructions given. Patient verbalizes understanding of same. Discharged in good condition via Medical Transport to *Other with *Other. All belongings sent with pt.[facility]
== END 2020-07-20 16:39 | disposition short-term general hospital (02) | DRG 871 ==
LOC: ED 11:14 → ED-I 13:50 → ED 16:13 → MS2 16:14
PROVIDERS: Nurse Practitioner; ADMIT Internal Medicine; ATTEND Internal Medicine
PROC: 0K9Q3ZZ Drainage of Right Upper Leg Muscle, Percutaneous Approach (ICD-10-PCS; principal; 2020-07-18)
PROC: 02HV33Z Insertion of Infusion Device into Superior Vena Cava, Percutaneous Approach (ICD-10-PCS; 2020-07-18)
PROC: B518ZZA Fluoroscopy of Superior Vena Cava, Guidance (ICD-10-PCS; 2020-07-18)
DX: A41.9 Sepsis, unspecified organism (principal); U07.1 COVID-19; M60.051 Infective myositis, right thigh; E87.2 Acidosis; I10 Essential (primary) hypertension; E11.9 Type 2 diabetes mellitus without complications; F17.200 Nicotine dependence, unspecified, uncomplicated; B95.62 Methicillin resistant Staphylococcus aureus infection as the cause of diseases classified elsewhere; Z87.39 Personal history of other diseases of the musculoskeletal system and connective tissue; Z79.84 Long term (current) use of oral hypoglycemic drugs
CPT/HCPCS: J1650; J3370; Q9967

== ENCOUNTER 2020-07-24 12:35 | Inpatient (IN) | payer SELFPAY ==
[~2020-07-24] VITALS: Ht 175.3 cm; Wt 71.2 kg
[~2020-07-24 12:35] MED LIST changes: +LISINOPRIL5 MG PO; +PIOGLITAZONE HC30 MG PO
--- NOTE | 2020-07-24 12:35 | NUR ---
PT ARRIVED TO MED/SURG ROOM 273 IN STABLE CONDITION VIA STRETCHER ACCOMPANIED BY [facility];PT ASSISTED TO BEDSIDE WITH A STEADY GAIT;PT A&O X3,ORIENTED TO ROOM AND CALL LIGHT SYSTEM;PT [place] SPEAKING,TRANSLATION PROVIDED BY OMERO,OR ISAIAH;PT DENIES ANY CURRENT PAIN OR DISCOMFORTS,PAIN SCALE AND REPORTING EDUCATED;RESPIRATIONS EVEN AND UNLABORED ON RA,CLEAR LUNG SOUNDS;ABDOMEN SOFT ON PALPATION AND ACTIVE IN ALL 4 QUADRANTS, LAST BM 07/24/20;STRONG PEDAL PULSES;SKIN INTACT;DRAIN NOTED TO RIGHT FLANK WITH MINIMAL SEROUS DRAINAGE;MARCY PICCLINE FLUSHED AND PATENT,SITE APPEARS HEALTHY;ALLERGY BAND APPLIED TO LEFT WRISR;PT DENIES ANY ADDITIONAL NEEDS AT THIS TIME AND IS ENCOURAGED TO CALL FOR ASSISTANCE IF NEEDED;FALL PRECAUTIONS IN PLACE WITH BED IN THE LOWEST POSITION AND CALL LIGHT IN REACH;WILL CONTINUE TO MONITOR
[2020-07-24 12:40] VITALS: BP 135/79
[2020-07-24 14:50] VITALS: BP 121/71
--- NOTE | 2020-07-24 15:01 | NUR ---
S: FRANCESCASAVITA is a 55 M who presents with iliopsoas abscess. He has a history of hypertension, diabetes, and necrotizing fasciitis. All medications in patient's chart were reviewed. O: VS: BP 135/79 mmHg, P 76 bpm, RR 18 breaths per minute,T 97.7 F W 71.3 kg, HT175.26 cm, Scr= 0.5 L,CrCl= 140.7 ml/min A: Aspirate culture from 07/18/20 shows MRSA growth which is sensitive to vancomycin. P: Vancomycin 1250 mg IV q8h given prior the transfer from [facility]. Vancomycin ordered for pharmacy to dose. Continue Vancomycin 1250 mg IV Q8H. Vancomycin trough is drawn before the 4th dose on 07/25/20 at 1330. Vancomycin goal trough is between 10-20 mcg/ml. Pharmacy will follow and or advise on antibiotics use as needed.
[2020-07-24] MEDS ORDERED: ATORVASTATIN CA40 MG PO (15:52)
[2020-07-24] MEDS ORDERED: NOVOLIN N100 UNIT/3 SC (15:56)
[2020-07-24] MEDS ORDERED: HUMALOG100 UNIT/M SC (15:57)
--- NOTE | 2020-07-24 16:01 | NUR ---
CONSULT PLACED AT THIS TIME IN TELEHEALTH.
--- NOTE | 2020-07-24 16:35 | NUR ---
PT RESTING IN RECLINER;RESPIRATIONS EVEN AND UNLABORED ON RA;PT DENIES ANY CURRENT PAIN OR DISCOMFORTS;MARCY PICCLINE REMAINS PATENT AND PERCUTANEOUS DRAIN IN PLACE;PT DENIES ANY ADDITIONAL NEEDS AND IS ENCOURAGED TO CALL FOR ASSISTANCE IF NEEDED;CALL LIGHT IN REACH;WILL CONTINUE TO MONITOR
--- NOTE | 2020-07-24 17:11 | NUR ---
CONSULT COMPLETED AT THIS TIME WITH TRANSLATION BY TATIANA ROUSSEAU.
--- NOTE | 2020-07-24 17:50 | NUR ---
PT BLOOD SUGAR NOTED TO BE ELEVATED AT 222; NOTIFIED AND NEW ORDERS RECEIVED AT THIS TIME.
[2020-07-24 19:00] VITALS: BP 140/72
--- NOTE | 2020-07-24 19:00 | NUR ---
RECEIVED REPORT FROM NURSE NICOLE, RESTING IN BED LEFT SIDE LYING POSITION, CURRENTLY WATCHING TV, BREATHING UNLABORED CALL LIGHT AT REACH.
--- NOTE | 2020-07-24 20:00 | NUR ---
PATIENT ALERT ORIENTED ABLE TO MAKE NEEDS KNOWN, WITH MARCY PICC SINGLE LUMEN PATENT FLUSHES WELL, LBM 07/24, ACTIVE BOWEL SOUNDS ON ALL QUADRANTS, PERCUTANEOUS DRAIN NOTED ON RT FLANK AREA DRAINING SEROUS DRAINAGE MINIMAL IN AMOUT, C/O PAIN OVER RT GROIN AND RT LOWERBACK PS 5/10 DULL PAIN WILL MEDUICATE, CALL LIGHT AT REACH.
--- NOTE | 2020-07-25 00:03 | NUR ---
PATIENT APPEARS TO BE SLEEPING WITH EYES CLOSED, BREATJING EVEN UNLABORED, CALL LIGHT AT REACH.
[2020-07-25 04:00] VITALS: BP 122/75
--- NOTE | 2020-07-25 04:38 | NUR ---
PATIENT APPEARS TO BE SLEEPING WITH EYES CLOSED EASY TO AROUSE,RESPIRATION EVEN UNLABORED, BLOOD DRAWN FROM THE POWER PICC ANF FLUSHED, CALL LIGHT AT REACH.
[2020-07-25 05:24] LABS: HEMATOCRIT 36.8 % (39.0-50.0); HEMOGLOBIN 11.8 g/dl (14.0-18.0); IMMATURE GRANULOCYTES 0.8 % (0.0-5.0); MEAN CELL VOLUME 89.3 fL CALC (80.0-100.0); MEAN CORPUSCULAR HGB 28.6 pG CALC (26.0-32.0); MEAN CORPUSCULAR HGB CONC 32.1 g/dL CAL (32.0-36.0); NEUT# 4.87 thou/uL (1.82-7.42); RED BLOOD COUNT 4.12 mill/uL (4.70-6.10); RED CELL DISTRI WIDTH 12.6 % (11.5-15.5)
[2020-07-25 05:36] LABS: ALKALINE PHOSPHATASE 173 u/l (38-126); BILIRUBIN, TOTAL 0.2 mg/dL (0.0-1.4); BUN 9 mg/dL (9-20); BUN/CREATININE RATIO 16 (12-20 (CALC)); CARBON DIOXIDE 31 mmol/l (22-30); CHLORIDE 100 mmol/l (95-108); CREATININE 0.6 mg/dL (0.7-1.3); GFR > 60 ML/MIN (>=60 (CALC)); GFR FOR AFR.AMER. > 60 ML/MIN (>=60 (CALC)); SGOT/AST 25 u/l (17-59); TOTAL PROTEIN 6.5 g/dL (6.3-8.2)
[2020-07-25 05:38] LABS: ALBUMIN 3.2 g/dL (3.2-5.0); ANION GAP 11 (6-22 (CALC)); POTASSIUM 4.5 mmol/l (3.5-5.1); SODIUM 137 mmol/l (137-146)
--- NOTE | 2020-07-25 05:54 | NUR ---
PICC LINE DRESSING CHANGED AT THIS TIME, AND PERCUTANEOUS DRAIN BAG EMPTIED, WITH 50CC OF SEROUS FLUID, DENIES PAIN OR DISCOMFORTS AT THIS TIME, CALL RONNIE SAUNDERS.
[2020-07-25 08:00] VITALS: BP 114/60
--- NOTE | 2020-07-25 09:00 | NUR ---
ALERT/ORIENTED WITH LITTLE VERBALIZATION. COMFORTABLE AT PRESENT WITHOUT C/O PAIN. PERCUTANEOUS DRAIN WITH 50CC RIGHT SIDE. sINGLE LUMEN PICC R UA AND DRESING RECENTLY CHANGED. ACCUCHECK 206 THIS AM AND RECEIVED COVERAGE. NO COMPLAINTS VOICED
[2020-07-25 10:30] VITALS: BP 122/75
--- NOTE | 2020-07-25 14:43 | NUR ---
FRANCESCASAVITA is a 55 M who presents with ilopsoas abscess. All medications in patient's chart were reviewed. W 71.271kg, HT 69in, Scr 0.6 mg/dl, CrCl= 141.7 ml/min Vancomycin trough = 12 mcg/ml Patient had been receiving vancomycin 1250mg iv q8h, dose continued from [facility]. Vancomycin ordered for pharmacy to dose. Change vancomycin dose to 1500mg iv q8h starting at 1500. Vancomycin trough is drawn before the 4th dose on 07/26 @ 1430. Vancomycin goal trough is between 15-20 mcg/ml. Pharmacy will follow and or advise on antibiotics use as needed.
[2020-07-25 15:15] VITALS: BP 97/62
--- NOTE | 2020-07-25 17:00 | NUR ---
PT. ALERT AND ORIENTED. SLINGLE LUMEN PICC PATENT RIGHT UPPER ARM. HAD TROUGH DONE TODAY AND VANCO DOSE ADJUSTED. DENIES PAIN AT THIS TIME.
[2020-07-25 18:55] VITALS: BP 120/74
--- NOTE | 2020-07-25 19:40 | NUR ---
PT RESTING IN BED, NO SIGNS OF DISTRESS NOTED, RESP EVEN AND UNLABORED. PT ALERT AND ORIENTED X3, NO EDEMA. DISCUSSED POC, PT HAS A PERCUTATIOUS DRAIN TO R SIDE, NO DRAINAGE AT THIS TIME. SL PICC LINE TO MARCY, ASSESSMENT COMPLETED, CALL LIGHT IN REACH,CONTINUE TO MONITOR.
--- NOTE | 2020-07-25 23:55 | NUR ---
PT RESTING IN BED WITH EYES CLOSED, NO SIGNS OF DISTRESS NOTED, RESP EVEN AND UNLABORED. CALL LIGHT IN REACH,CONTINUE TO MONITOR.
--- NOTE | 2020-07-26 03:57 | NUR ---
PT RESTING IN BED WITH EYES CLOSED, NO SIGNS OF DISTRESS NOTED, RESP EVEN AND UNLABORED. CALL LIGHT IN REACH,CONTINUE TO MONITOR.
[2020-07-26 04:30] VITALS: BP 122/71
[2020-07-26 07:47] VITALS: BP 155/90
--- NOTE | 2020-07-26 08:00 | NUR ---
PT. ALERT AND ORIENTED X 3. CHANGED DRESSING ON DRAIN SITE ON LEFT FLANK. SINGLE LUMEN PICC RIGHT UPPER ARM PATENT AND INTACT. FLUSHES WELL. PEDAL PULSES INTACT. HAD A BOWEL MOVEMENT TODAY. WILL MONITOR.
--- NOTE | 2020-07-26 13:00 | NUR ---
PT SEEN AMBULATORY IN HALLWAY, SITTING IN CHAIR NEAR WINDOW. NO COMPLAINTS, NO EVIDENCE OF DISTRESS. PT CONTINUES WITH ACCUCHECKS, SEEN ELEVATED IN LOW 200s MUCH OF THE TIME. RUE PICC FLUSHES AND DRAWN WELL.
--- NOTE | 2020-07-26 14:45 | NUR ---
S: BRANDNARINDERSAVITA is a 55 M who presents with iliopsoas abscess. He has a history of hypertension,diabetes, and necrotizing fasciitis. All medications in patient's chart were reviewed. O: VS: BP 155/90 mmHg, P 63 bpm, RR 16 breaths per min, T 97.4 F W 71.2 kg, HT 69 in, Scr= 0.6 L, CrCl= 141.7 ml/min Trough: 15 ug/dL A: Aspirate culture showed MRSA which is sensitive to vancomycin. P: Patient is on vancomycin. Vancomycin ordered for pharmacy to dose. Continue Vancomycin 1500 mg IV Q8H. Vancomycin trough is drawn before the 4th dose on 07/27/20 at 1430. Vancomycin goal trough is between 15-20 mcg/ml. Pharmacy will follow and or advise on antibiotics use as needed.
[2020-07-26 15:09] VITALS: BP 111/75
[2020-07-26 18:50] VITALS: BP 110/71
--- NOTE | 2020-07-26 19:55 | NUR ---
PATIENT IS ALERT AND ORIENTED X3. ABLE TO MAKE NEEDS KNOWN. RESPIRATIONS EASY ON ROOM AIR. SKIN WARM AND DRY. PICC MARCY PATENT WITH DRESSING CLEAN DRY AND INTACT. CURRENTLY SALINE LOCKED. DRESSING WITH DRAIN CLEAN DRY AND INTACT. NO DRAINAGE AT THIS TIME. CONTINENT OF URINE AND BOWEL. DENIES PAIN. ON TELEMETRY SINUS RHYTHM. COMPLIANT WITH MEDICATIONS. BED IN LOW POSITION CALL LIGHT WITHIN REACH.
--- NOTE | 2020-07-27 00:07 | NUR ---
PATIENT RESTING WITH EYES CLOSED. RESPIRATION EASY. NO ACUTE DISTRESS NOTED. BED IN LOW POSITION. CALL LIGHT WITHIN REACH.
--- NOTE | 2020-07-27 03:14 | NUR ---
PATIENT RESTING WITH EYES CLOSED. RESPIRATIONS EASY ON ROOM AIR. VAD S/L. NO COMPLAINTS NOTED. BED IN LOW POSITION. CALL LIGHT WITHIN REACH.
[2020-07-27 05:01] VITALS: BP 130/80
[2020-07-27 08:13] VITALS: BP 121/74
--- NOTE | 2020-07-27 08:13 | NUR ---
PT SITTING IN LINE. A&O X3. NO DISTRESS NOTED. PT DENIES ANY PAIN AT THIS TIME. DRAIN IN PLACE DRAINING. PICC LINE IN PLACE TO MARCY, FLUSHES AND PULLS BACK BLOOD WITH EASE, DRESSING CDI. ASSESSMENT COMPLETED. DISCUSSED POC. CALL LIGHT IN REACH. CONTINUE TO MONITOR.
--- NOTE | 2020-07-27 11:39 | NUR ---
PT SITTING IN THE CHAIR. NO DISTRESS NOTED. CALL LIGHT IN REACH. CONTINUE TO MONITOR.
--- NOTE | 2020-07-27 14:37 | NUR ---
DR LOERA AT BEDSIDE
[2020-07-27 15:17] VITALS: BP 118/69
--- NOTE | 2020-07-27 16:13 | NUR ---
PT IS RECEIVING VANCOMYCIN 1500MG IV Q8H FOR TREATMENT OF ILOPSOAS ABSCESS. PER ID PHYSICIAN DR VIZCAINO, GOAL TROUGH = 10-20 MCG/ML. TODAY @ 1504, TROUGH = 14 MCG/ML. CONTINUE AT THIS CURRENT DOSE. CHECK TROUGH ON 07/29 @ 1430 PT HAS HAD 2 TROUGH LEVELS WITHIN RANGE. PT HAS NOT HAD LABS SINCE 07/25, WILL REQUEST PHYSICIAN ORDER BMP AND CBC TOMORROW AM. PHARMACY WILL CONTINUE TO FOLLOW.
--- NOTE | 2020-07-27 17:37 | NUR ---
PT SITTING IN BED. NO DISTRESS NOTED. CALL LIGHT IN REACH. CONTINUE TO MONITOR.
[2020-07-27 19:00] VITALS: BP 128/78
--- NOTE | 2020-07-28 01:35 | NUR ---
Patient resting in bed throughout shift, Temp. 99.8, PRN Tylenol given. On IV ABT for wound, no adverse reaction noted. IV site on MARCY, clean and intact flush well. Resp. evena and unlabored. No SOB noted. No pain or discomfort noted. Will cotinue to monitor. Fluids encouraged. Safety measures in place with call light in reach.
[2020-07-28 04:00] VITALS: BP 101/53
[2020-07-28 07:46] VITALS: BP 132/61
--- NOTE | 2020-07-28 07:46 | NUR ---
PT SITTING IN BED EATING BREAKFAST. NO DISTRESS NOTED. A&O X3. DRAIN IN PLACE WITH PURULENT OUTPUT NOTED IN COLLECTION BAG. PICC LINE TO MARCY FLUSHES AND PULLS BACK BLOOD WITH EASE. NO OTHER NEEDS AT THIS TIME. ASSESSMENT COMPLETED. DISCUSSED POC. CALL LIGHT IN REACH. CONTINUE TO MONITOR.
--- NOTE | 2020-07-28 10:05 | NUR ---
DR LOERA AND MARIA AT BEDSIDE DISCUSSING POC
--- NOTE | 2020-07-28 12:00 | NUR ---
PT SITTING IN CHAIR EATING LUNCH. NO NEEDS AT THIS TIME. CALL LIGHT IN REACH. CONTINUE TO MONITOR.
[2020-07-28 15:02] VITALS: BP 127/73
--- NOTE | 2020-07-28 17:02 | NUR ---
PT SITTING IN CHAIR. NO NEEDS AT THIS TIME. CALL LIGHT IN REACH. CONTINUE TO MONITOR.
[2020-07-28 19:00] VITALS: BP 115/72
--- NOTE | 2020-07-28 22:27 | NUR ---
1950-PT LYING IN BED WATCHING TV. NO S/S OF DISTRESS. ASSESSMENT COMPLETE. BED LOW AND LOCKED. CALL LIGHT AND PHONE WITHIN REACH. PT STABLE, WILL CONTINUE TO MONITOR.
--- NOTE | 2020-07-29 00:15 | NUR ---
0015-PT LYING IN BED, ASLEEP. NO S/S OF DISTRESS. BED LOW AND LOCKED. CALL LIGHT AND PHONE WITHIN REACH. PT STABLE. WILL CONTINUE TO MONITOR.
[2020-07-29 04:00] VITALS: BP 160/80
--- NOTE | 2020-07-29 04:25 | NUR ---
0425-PT SITTING ON SIDE OF BED. AM LABS DRAWN. NO S/S OF DISTRESS. PT TOLERATED LAB DRAWING WELL. ASSISTED PT BACK TO BED. BED LOW AND LOCKED. CALL LIGHT AND PHONE WITHIN REACH. PT STABLE. WILL CONTINUE TO MONITOR.
[2020-07-29 04:59] LABS: HEMATOCRIT 36.6 % (39.0-50.0); HEMOGLOBIN 11.8 g/dl (14.0-18.0); IMMATURE GRANULOCYTES 0.1 % (0.0-5.0); MEAN CELL VOLUME 89.7 fL CALC (80.0-100.0); MEAN CORPUSCULAR HGB 28.9 pG CALC (26.0-32.0); MEAN CORPUSCULAR HGB CONC 32.2 g/dL CAL (32.0-36.0); NEUT# 4.33 thou/uL (1.82-7.42); RED BLOOD COUNT 4.08 mill/uL (4.70-6.10); RED CELL DISTRI WIDTH 12.7 % (11.5-15.5)
[2020-07-29 05:22] LABS: ALBUMIN 3.4 g/dL (3.2-5.0); ALKALINE PHOSPHATASE 132 u/l (38-126); ANION GAP 11 (6-22 (CALC)); BILIRUBIN, TOTAL 0.2 mg/dL (0.0-1.4); BUN 10 mg/dL (9-20); BUN/CREATININE RATIO 16 (12-20 (CALC)); CARBON DIOXIDE 30 mmol/l (22-30); CHLORIDE 101 mmol/l (95-108); CREATININE 0.6 mg/dL (0.7-1.3); GFR > 60 ML/MIN (>=60 (CALC)); GFR FOR AFR.AMER. > 60 ML/MIN (>=60 (CALC)); POTASSIUM 4.4 mmol/l (3.5-5.1); SGOT/AST 22 u/l (17-59); SODIUM 137 mmol/l (137-146); TOTAL PROTEIN 6.7 g/dL (6.3-8.2)
[2020-07-29 07:31] VITALS: BP 131/81
--- NOTE | 2020-07-29 07:31 | NUR ---
PT SITTING IN BED WATCHING. NO DISTRESS NOTED. A&O X3. PT DENIES ANY PAIN AT THIS TIME. DRAIN IN PLACE WITH MINIMAL OUTPUT NOTED. MARCY PICC IN PLACE, FLUSHES AND PULLS BACK BLOOD WITH EASE. NO OTHER NEEDS AT THIS TIME. ASSESSMENT COMPLETED. DISCUSSED POC. CALL LIGHT IN REACH. CONTINUE TO MONITOR.
--- NOTE | 2020-07-29 09:18 | NUR ---
PT TAKEN TO CT VIA WC ACCOMPANIED BY RALPH HALL.
[2020-07-29] MEDS ORDERED: METFORMIN500 M2 PO (10:53)
[2020-07-29] MEDS ORDERED: PIOGLITAZONE HC30 MG PO (10:53)
[2020-07-29] MEDS ORDERED: CUBICIN500 MG IV (10:58)
--- NOTE | 2020-07-29 12:10 | NUR ---
DRAIN REMOVED BY DR LOERA
--- NOTE | 2020-07-29 14:39 | NUR ---
FIRST DOSE OF CUBICIN INITIATED. D/C INSTRUCTIONS TO BE GIVEN TO PT. PT STATES TRANSPORTATION WILL BE HERE AT 1533
--- NOTE | 2020-07-29 15:03 | NUR ---
D/C INSTRUCTIONS GIVEN THOROUGHLY TO PT. INSTRUCTIONS TO CALL DR LOERA'S OFFICE TO SET AN APPOINTMENT FOR THURSDAY, STRESSED IMPORTANCE OF PT COMING TO REC IV ANTIBIOTIC THERAPY WELL GETTING AN APPOINTMENT TO GET A REPEAT CT SCAN FOR THURSDAY 08/02 PER EVARISTO'S INSTRUCTIONS. PT TO FOLLOW UP WITH [facility]. EXPLAINED TO PT HOW TO CARE FOR PICC LINE, WITH ABSOLUTELY NOTHING TO BE PUSHED THROUGH LINE EXCEPT ANTIBIOTIC. PT VERBALIZED UNDERSTANDING. PICC FLUSHED WITH 10 CC OF NS AND HEPARIN PER PROTOCOL. NEW TUBULAR MESH APPLIED OVER PICC.
--- NOTE | 2020-07-29 15:57 | NUR ---
Discharge instructions given. Patient verbalizes understanding of same. Discharged in stable condition via wheelchair to home accompanied by Megan HALL. All belongings sent with pt.
== END 2020-07-29 16:00 | disposition home or self-care (01) | DRG 557 ==
LOC: MS2 12:35
PROVIDERS: Nurse Practitioner; Nurse Practitioner Family; ADMIT Internal Medicine; ATTEND Internal Medicine
DX: M60.051 Infective myositis, right thigh (principal); U07.1 COVID-19; I10 Essential (primary) hypertension; E11.9 Type 2 diabetes mellitus without complications; F17.200 Nicotine dependence, unspecified, uncomplicated; B95.62 Methicillin resistant Staphylococcus aureus infection as the cause of diseases classified elsewhere; Z79.84 Long term (current) use of oral hypoglycemic drugs
CPT/HCPCS: J0878; J1650; J3370; Q9967

== ENCOUNTER 2021-09-19 12:19 | Emergency (ER) | payer SELFPAY ==
[~2021-09-19] VITALS: Ht 175.3 cm; Wt 80.0 kg
[~2021-09-19 12:19] MED LIST changes: +ATORVASTATIN CA40 MG PO; +CUBICIN500 MG IV; +HUMALOG100 UNIT/M SC; -LISINOPRIL5 MG PO; +NOVOLIN N100 UNIT/3 SC
[2021-09-19 12:44] VITALS: BP 190/90
[2021-09-19] MEDS ORDERED: LORTAB 1010 MG PO (14:59)
[2021-09-19] MEDS ORDERED: KEFLEX500 MG PO (14:59)
[2021-09-19] MEDS ORDERED: BACTRIM DS1 TAB PO (14:59)
== END 2021-09-19 15:19 | disposition home or self-care (01) | DRG 603 ==
LOC: ED 12:19
PROC: 0H96XZZ Drainage of Back Skin, External Approach (ICD-10-PCS; principal; 2021-09-19)
DX: L02.212 Cutaneous abscess of back [any part, except buttock and flank] (principal); I10 Essential (primary) hypertension; E11.9 Type 2 diabetes mellitus without complications; F17.200 Nicotine dependence, unspecified, uncomplicated

== ENCOUNTER 2021-09-20 13:38 | Emergency (ER) | payer SELFPAY ==
[~2021-09-20] VITALS: Ht 175.3 cm; Wt 80.0 kg
[~2021-09-20 13:38] MED LIST changes: +BACTRIM DS1 TAB PO; +KEFLEX500 MG PO; +LORTAB 1010 MG PO
[2021-09-20 14:13] VITALS: BP 133/65
[2021-09-21] MEDS ORDERED: NEURONTIN300 MG PO (13:23)
[2021-09-21] MEDS ORDERED: ZOCOR20 M1 PO (13:24)
[2021-09-21] MEDS ORDERED: AMLODIPINE BESYL5 MG PO (13:24)
[2021-09-21] MEDS ORDERED: LISINOPRIL5 MG PO (13:24)
[2021-09-21] MEDS ORDERED: METFORMIN HCL1000 MG PO (13:25)
== END 2021-09-20 14:15 | disposition home or self-care (01) | DRG 951 ==
LOC: ED 13:38
DX: Z48.01 Encounter for change or removal of surgical wound dressing (principal); I10 Essential (primary) hypertension; E11.9 Type 2 diabetes mellitus without complications; F17.200 Nicotine dependence, unspecified, uncomplicated

== ENCOUNTER 2021-09-21 12:18 | Emergency (ER) | payer SELFPAY ==
[~2021-09-21] VITALS: Ht 175.3 cm; Wt 76.0 kg
[2021-09-21 13:00] VITALS: BP 142/86
[2021-09-21] MEDS ORDERED: NEURONTIN300 MG PO (13:23)
[2021-09-21] MEDS ORDERED: LISINOPRIL5 MG PO (13:24)
[2021-09-21] MEDS ORDERED: ZOCOR20 M1 PO (13:24)
[2021-09-21] MEDS ORDERED: AMLODIPINE BESYL5 MG PO (13:24)
[2021-09-21] MEDS ORDERED: METFORMIN HCL1000 MG PO (13:25)
== END 2021-09-21 13:25 | disposition home or self-care (01) | DRG 951 ==
LOC: ED 12:18
DX: Z48.01 Encounter for change or removal of surgical wound dressing (principal); I10 Essential (primary) hypertension; E11.9 Type 2 diabetes mellitus without complications

== ENCOUNTER 2021-09-23 11:35 | Emergency (ER) | payer SELFPAY ==
[~2021-09-23] VITALS: Ht 175.3 cm; Wt 80.0 kg
[~2021-09-23 11:35] MED LIST changes: +LISINOPRIL5 MG PO; +METFORMIN HCL1000 MG PO; +NEURONTIN300 MG PO; +ZOCOR20 M1 PO
[2021-09-23 14:22] VITALS: BP 129/60
== END 2021-09-23 14:22 | disposition home or self-care (01) | DRG 951 ==
LOC: ED 11:35
DX: Z48.01 Encounter for change or removal of surgical wound dressing (principal); I10 Essential (primary) hypertension; E11.9 Type 2 diabetes mellitus without complications; F17.200 Nicotine dependence, unspecified, uncomplicated; Z79.84 Long term (current) use of oral hypoglycemic drugs

== ENCOUNTER 2021-09-25 10:44 | Emergency (ER) | payer SELFPAY ==
[~2021-09-25] VITALS: Ht 175.3 cm; Wt 80.0 kg
[2021-09-25 11:10] VITALS: BP 181/86
== END 2021-09-25 11:39 | disposition home or self-care (01) | DRG 951 ==
LOC: ED 10:44
DX: Z48.01 Encounter for change or removal of surgical wound dressing (principal); I10 Essential (primary) hypertension; E11.9 Type 2 diabetes mellitus without complications; F17.200 Nicotine dependence, unspecified, uncomplicated; Z79.84 Long term (current) use of oral hypoglycemic drugs

== ENCOUNTER 2021-09-28 12:00 | Emergency (ER) | payer SELFPAY ==
[~2021-09-28] VITALS: Ht 175.3 cm; Wt 81.0 kg
[2021-09-28 17:42] VITALS: BP 139/67
== END 2021-09-28 17:42 | disposition home or self-care (01) | DRG 951 ==
LOC: ED 12:00
DX: Z48.01 Encounter for change or removal of surgical wound dressing (principal); I10 Essential (primary) hypertension; E11.9 Type 2 diabetes mellitus without complications; Z79.84 Long term (current) use of oral hypoglycemic drugs; F17.210 Nicotine dependence, cigarettes, uncomplicated